=== PATIENT | male | born 1970 | race Caucasian/White ===

== ENCOUNTER → 2016-12-30 | Outpatient (CLI) | payer BC ==
--- NOTE | 2016-12-30 17:58 | DIAGNOSTIC IMAGING REPORT ---
CT OF THE CHEST WITHOUT IV CONTRAST CLINICAL HISTORY: Left lung nodule. COMPARISON STUDY: Chest CT April 18, 2016. CT DOSE: 667.91 mGycm TECHNIQUE: Axial images of the chest were obtained without IV contrast. Images were reviewed in the axial, sagittal, and coronal planes. IV contrast was not administered for this examination. FINDINGS: No enlarged axillary, mediastinal or hilar lymph nodes are present. The size of the heart is normal. There is no pericardial effusion. Central airways are patent. Linear and groundglass opacities represent atelectasis. The previously described 5 mm left lower lobe nodule shown image 180 of 311 is partially obscured by atelectasis but is similar to exam of April 18, 2016. A 4 mm subpleural nodule within the right lower lobe shown on image 170 is unchanged. In retrospect, this was present on prior exam. No new nodules are present. There is a calcified granuloma within left upper lobe. No new nodules are present. Bony thorax and upper abdomen are unremarkable. IMPRESSION: No change in several noncalcified pulmonary nodules since exam of April 18, 2016. A follow-up chest CT in 6 months to ensure stability is recommended. Electronically signed by: Haris Golden M.D. 12/30/2016 5:57 PM Dictated Date/Time: 12/30/2016 5:53 PM
== END | disposition home or self-care (01) ==
LOC: C.CTS 17:16
PROVIDERS: ATTEND Internal Medicine Pulmonary Disease
DX: R91.1 Solitary pulmonary nodule (principal)

== ENCOUNTER → 2017-06-23 | Outpatient (CLI) | payer BC ==
--- NOTE | 2017-06-23 09:57 | DIAGNOSTIC IMAGING REPORT ---
CT OF THE CHEST WITHOUT IV CONTRAST CLINICAL HISTORY: Lung nodules. COMPARISON STUDY: Chest CTs April 18, 2016 and December 30, 2016. CT DOSE: 870.56 mGy.cm TECHNIQUE: Axial images of the chest were obtained without IV contrast. Images were reviewed in the axial, sagittal, and coronal planes. IV contrast was not administered for this examination. A dose lowering technique was utilized adhering to the principles of ALARA. FINDINGS: No enlarged axillary, mediastinal or hilar lymph nodes are present. The heart is borderline enlarged. There is no pericardial effusion. Central airways are patent. Groundglass opacities reflect atelectasis. A 6 mm subpleural left lower lobe nodule shown on image 191 of 326 is similar in size to exam of April 18, 2016. A 4 mm subpleural right lower lobe nodule shown image 171 of 326 is also unchanged. A few additional tiny subpleural nodules are unchanged. No new nodules are present. No pneumothorax or pleural effusion is present. Central airways are patent. Bony thorax and upper abdomen are unremarkable on this unenhanced exam. IMPRESSION: No change in several subpleural nodules since initial CT of April 18, 2016. These are likely benign. A follow-up chest CT in one one year to ensure stability is recommended. Electronically signed by: Haris Golden M.D. 06/23/2017 9:56 AM Dictated Date/Time: 06/23/2017 9:43 AM
== END | disposition home or self-care (01) ==
LOC: C.CTS 09:18
PROVIDERS: ATTEND Internal Medicine Pulmonary Disease
DX: R91.8 Other nonspecific abnormal finding of lung field (principal)

== ENCOUNTER → 2018-06-08 | Outpatient (CLI) | payer BC ==
--- NOTE | 2018-06-08 09:53 | DIAGNOSTIC IMAGING REPORT ---
CT OF THE CHEST WITHOUT IV CONTRAST CLINICAL HISTORY: Multiple lung nodules. COMPARISON STUDY: Chest CT April 18, 2016 and June 23, 2017. CT DOSE: 810.84 mGy.cm TECHNIQUE: Axial images of the chest were obtained without IV contrast. Images were reviewed in the axial, sagittal, and coronal planes. IV contrast was not administered for this examination. A dose lowering technique was utilized adhering to the principles of ALARA. FINDINGS: No enlarged axillary, mediastinal or hilar lymph nodes are present. Size the heart is normal. There is no pericardial effusion. Central airways are patent. There is no pneumothorax or pleural effusion. A calcified left upper lobe granuloma is noted. A few noncalcified pulmonary nodules are unchanged since initial chest CT of April 18, 2016 and include a 4 mm right lower lobe nodule shown on image 189 of 346 and a 6 mm subpleural left lower lobe nodule shown on image 208. There are no new nodules. There is no consolidation. No pneumothorax or pleural effusion is noted. Bony thorax and upper abdomen are unremarkable. IMPRESSION: No change in several subcentimeter pulmonary nodules since initial chest CT of April 18, 2016. Stability over this time period is consistent with a benign etiology. No additional imaging follow-up is necessary. Electronically signed by: Haris Golden M.D. 06/08/2018 9:52 AM Dictated Date/Time: 06/08/2018 9:44 AM
== END | disposition home or self-care (01) ==
LOC: C.CTS 09:18
PROVIDERS: ATTEND Internal Medicine Pulmonary Disease
DX: R91.8 Other nonspecific abnormal finding of lung field (principal)